=== PATIENT | male | born 1965 | race American Indian/Alaskan Native ===

== ENCOUNTER 2020-08-23 04:04 | Emergency (ER) | payer BC, MEDICARE ==
[2020-08-23 05:10] LABS: Basophils # (Auto) 0.1 K/mm3 (0.0-0.1); Basophils % (Auto) 0.7 % (0.0-1.8); Eosinophils # (Auto) 0.1 K/mm3 (0.0-0.4); Eosinophils % (Auto) 0.6 % (0.0-4.3); Hematocrit 42.3 % (35.5-45.6); Hemoglobin 14.2 gm/dl (11.8-15.2); Lymphocytes # (Auto) 1.8 K/mm3 (1.2-5.4); Lymphocytes % (Auto) 22.6 % (13.4-35.0); Mean Corpuscular HGB Conc 34 % (32-34); Mean Corpuscular Volume 88 fl (84-94); Monocytes # (Auto) 0.6 K/mm3 (0.0-0.8); Monocytes % (Auto) 7.4 % (0.0-7.3); Platelet Count 281 K/mm3 (140-440); Red Blood Count 4.81 M/mm3 (3.65-5.03); Red Cell Distribution Width 14.5 % (13.2-15.2)
--- NOTE | 2020-08-23 05:13 | XRay Report ---
CHEST 2 VIEWS INDICATION / CLINICAL INFORMATION: dizziness. COMPARISON: None available. FINDINGS: SUPPORT DEVICES: None. HEART / MEDIASTINUM: No significant abnormality. LUNGS / PLEURA: No significant pulmonary or pleural abnormality. No pneumothorax. ADDITIONAL FINDINGS: No significant additional findings. IMPRESSION: 1. No acute findings. Signer Name: Dede Grajeda MD Signed: 08/23/2020 5:09 AM Workstation Name: [email or web address]
--- NOTE | 2020-08-23 05:32 | Cat Scan Report ---
CT head/brain wo con INDICATION: Patient complains of dizziness and a headache. TECHNIQUE: Routine CT head without contrast. All CT scans at this location are performed using CT dos e reduction for ALARA by means of automated exposure control. COMPARISON: None. FINDINGS: BRAIN / INTRACRANIAL CONTENTS: No acute hemorrhage, mass effect, midline shift, or hydrocephalus. No appreciable acute large territorial or lacunar infarct. Age-commensurate ventricular and cisternal/wallace lcal prominence. There is what appears to be encephalomalacia in the right posterior parietal lobe. A dditionally, there is a small chronic appearing lacunar infarct in the left basal ganglia/anterior li mb of the internal capsule. There is moderate areas of cerebral white matter low density, nonspecific but suggestive of chronic microvascular ischemic change. ORBITS: No significant abnormality of visualized orbits. SINUSES / MASTOIDS: No significant abnormality of visualized sinuses and mastoid air cells. ADDITIONAL FINDINGS: None. IMPRESSION: 1. No acute intracranial abnormality on noncontrast CT of the brain. 2. There is what appears to be encephalomalacia in the right posterior parietal lobe, small chronic a ppearing lacunar infarct in the left basal ganglia/anterior limb of the internal capsule, and moderat e chronic microvascular ischemic change. However, if there is clinical concern for acute ischemia, MR I brain could be performed for further evaluation. Signer Name: Dede Grajeda MD Signed: 08/23/2020 5:28 AM Workstation Name: [id number]
[2020-08-23 05:50] LABS: Alanine Aminotransferase 10 units/L (7-56); Albumin 4.7 g/dL (3.9-5); BUN/Creatinine Ratio 20; Blood Urea Nitrogen 24 mg/dL (9-20); Calcium 9.4 mg/dL (8.4-10.2); Hemolysis Index 9
[2020-08-23 09:58] VITALS: BP 159/101
--- NOTE | 2020-08-23 11:04 | Emergency Department Report ---
HPI - General Chief Complaint: Dizziness Time Seen by Provider: 08/23/20 10:33 - HPI HPI: This is a 55-year-old -Turk[place] male presents to the emergency department with the complaint of having some dizziness and a syncopal episode earlier this morning while at work. 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 He did not take anything for his symptoms prior to presentation. 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 He has been compliant with his medications. He has a primary care physician for follow-up. He denies any fever, vision change, chest pain, slurred speech, numbness or paresthesias, localized weakness. No recent travel or sick contacts at home. ED Past Medical Hx - Past Medical History Previous Medical History?: Yes Hx Hypertension: Yes Hx CVA: Yes (2019) Hx Diabetes: Yes Hx Seizures: Yes - Surgical History Past Surgical History?: Yes Additional Surgical History: Knee - Social History Smoking Status: Never Smoker Substance Use Type: None ED Review of Systems ROS: Stated complaint: DIZZINESS/RT ARM WEAKNESS Other details as noted in HPI Comment: All other systems reviewed and negative Constitutional: denies: chills, fever Eyes: denies: eye pain, vision change ENT: denies: ear pain, throat pain Respiratory: denies: cough, shortness of breath Cardiovascular: syncope. denies: chest pain, palpitations Gastrointestinal: denies: abdominal pain, vomiting Genitourinary: denies: dysuria, discharge Musculoskeletal: denies: back pain, arthralgia Skin: denies: rash, lesions Neurological: other (dizziness). denies: headache Physical Exam - Physical Exam Vital Signs: Vital Signs 08/23/20 04:31 Temperature 98.4 F Pulse Rate 95 H Respiratory 16 Rate Blood Pressure 159/101 O2 Sat by Pulse 96 Oximetry Physical Exam: GENERAL: The patient is well-developed well-nourished. HENT: Normocephalic. Atraumatic. Patient has moist mucous membranes. EYES: Extraocular motions are intact. Pupils equal reactive to light bilaterally. No nystagmus. NECK: Supple. Trachea is midline. CHEST/LUNGS: Clear to auscultation. There is no respiratory distress noted. HEART/CARDIOVASCULAR: Regular. There is no tachycardia. There is no murmur. ABDOMEN: Abdomen is soft, nontender. Patient has normal bowel sounds. There is no abdominal distention. SKIN: Skin is warm and dry. NEURO: The patient is awake, alert, and oriented. The patient is cooperative. The patient has no focal neurologic deficits. Normal speech. Cranial nerves II through XII grossly intact. No facial asymmetry. No pronator drift or dysmetria. MUSCULOSKELETAL: There is no tenderness or deformity. There is no limitation range of motion. ED Course Vital Signs 08/23/20 04:31 Temperature 98.4 F Pulse Rate 95 H Respiratory 16 Rate Blood Pressure 159/101 O2 Sat by Pulse 96 Oximetry ED Medical Decision Making - Lab Data Result diagrams: 08/23/20 04:57 08/23/20 04:57 Lab Results 08/23/20 08/23/20 08/23/20 Range/Units 04:57 04:57 07:53 WBC 7.9 (4.5-11.0) K/mm3 RBC 4.81 (3.65-5.03) M/mm3 Hgb 14.2 (11.8-15.2) gm/dl Hct 42.3 (35.5-45.6) % MCV 88 (84-94) fl MCH 30 (28-32) pg MCHC 34 (32-34) % RDW 14.5 (13.2-15.2) % Plt Count 281 (140-440) K/mm3 Lymph % (Auto) 22.6 (13.4-35.0) % [place] % (Auto) 7.4 H (0.0-7.3) % Eos % (Auto) 0.6 (0.0-4.3) % Baso % (Auto) 0.7 (0.0-1.8) % Lymph # (Auto) 1.8 (1.2-5.4) K/mm3 [place] # (Auto) 0.6 (0.0-0.8) K/mm3 Eos # (Auto) 0.1 (0.0-0.4) K/mm3 Baso # (Auto) 0.1 (0.0-0.1) K/mm3 Seg Neutrophils % 68.7 (40.0-70.0) % Seg Neutrophils # 5.4 (1.8-7.7) K/mm3 Sodium 139 (137-145) mmol/L Potassium 4.4 (3.6-5.0) mmol/L Chloride 103.0 (98-107) mmol/L Carbon Dioxide 27 (22-30) mmol/L Anion Gap 13 mmol/L BUN 24 H (9-20) mg/dL Creatinine 1.2 (0.8-1.3) mg/dL Estimated GFR > 60 ml/min BUN/Creatinine Ratio 20 % Glucose 146 H (75-100) mg/dL Calcium 9.4 (8.4-10.2) mg/dL Total Bilirubin 0.30 (0.1-1.2) mg/dL AST 11 (5-40) units/L ALT 10 (7-56) units/L Alkaline Phosphatase 42 (35-129) units/L Troponin T < 0.010 < 0.010 (0.00-0.029) ng/mL Total Protein 6.9 (6.3-8.2) g/dL Albumin 4.7 (3.9-5) g/dL Albumin/Globulin Ratio 2.1 % - EKG Data -: EKG Interpreted by Me EKG shows normal: sinus rhythm, axis, intervals, QRS complexes, ST-T waves Rate: normal - EKG Data When compared to previous EKG there are: previous EKG unavailable Interpretation: normal EKG - Radiology Data Radiology results: report reviewed, image reviewed interpreted by me: Chest x-ray does not show any acute process. There are no pleural effusions, obvious pneumonia and there is no pneumothorax. No significant cardiomegaly. CT head/brain wo con INDICATION: Patient complains of dizziness and a headache. TECHNIQUE: Routine CT head without contrast. All CT scans at this location are performed using CT dose reduction for ALARA by means of automated exposure control. COMPARISON: None. FINDINGS: BRAIN / INTRACRANIAL CONTENTS: No acute hemorrhage, mass effect, midline shift, or hydrocephalus. No appreciable acute large territorial or lacunar infarct. Age-commensurate ventricular and ciste rnal/sulcal prominence. There is what appears to be encephalomalacia in the right posterior parietal lobe. Additionally, there is a small chronic appearing lacunar infarct in the left basal ganglia/anterior limb of the internal capsule. There is moderate areas of cerebral white matter low density, nonspecific but suggestive of chronic microvascular ischemic change. ORBITS: No significant abnormality of visualized orbits. SINUSES / MASTOIDS: No significant abnormality of visualized sinuses and mastoid air cells. ADDITIONAL FINDINGS: None. IMPRESSION: 1. No acute intracranial abnormality on noncontrast CT of the brain. 2. There is what appears to be encephalomalacia in the right posterior parietal lobe, small chronic appearing lacunar infarct in the left basal ganglia/anterior limb of the internal capsule, and moderate chronic microvascular ischemic change. However, if there is clinical concern for acute ischemia, MRI brain could be performed for further evaluation. - Medical Decision Making This patient presented with a syncopal episode that was preceded by some nonspecific dizziness/lightheadedness. At the time of my examination the patient is asymptomatic. He does not have any focal, motor or sensory deficits and his cranial nerves are intact. The patient had blood work and imaging done prior to my shift starting, including a CT scan of the head without contrast, chest x-ray. CT of the head did not show any hemorrhage or large vessel occlusion, or any other acute process. Chest x-ray did not show any pneumonia, pleural effusions, pneumothorax, or any acute process. Labs have been unremarkable including CBC, metabolic panel, and negative troponins x2. Vital signs have been reassuring throughout his ED course. The patient has been seen ambulatory in the emergency department and both appears and feels stable. For all these reasons the patient appears safe for discharge home at this time. He has been instructed to follow-up with his primary care physician, but to return to the closest emergency department with any further episodes of passing out, worsening of his symptoms, or with any acute distress. Critical Care Time: No Critical care attestation.: If time is entered above; I have spent that time in minutes in the direct care of this critically ill patient, excluding procedure time. ED Disposition Clinical Impression: Dizziness Syncope Qualifiers: Syncope type: unspecified Qualified Code(s): R55 - Syncope and collapse Hypertension Qualifiers: Hypertension type: essential hypertension Qualified Code(s): I10 - Essential (primary) hypertension Disposition: - TO HOME OR SELFCARE Is pt being admited?: No Condition: Stable Instructions: Syncope, Hypertension, Adult, Syncope (ED), Hypertension (ED) Additional Instructions: Please follow-up with your primary care physician in the next few days. Take all medications as prescribed. Try to stay away from foods that are high in salt and caffeinated products. Keep a blood pressure log. Return to the emergency department with any worsening of your symptoms, new or concerning symptoms not addressed during this current emergency department visit, or with any acute distress. Referrals: RITESH RODRIGUEZ MD [Primary Care Provider] - 2-3 Days Forms: Work/School Release Form(ED) Time of Disposition: 11:04 - Assessment Assessment Interval: Baseline - Level of Consciousness 1a. Level of Consciousness: alert/keenly responsive - LOC Questions 1b. LOC Questions: answers both correctly - LOC Command 1c. LOC Commands: performs tasks correctly - Best Gaze 2. Best Gaze: normal - Visual 3. Visual: no visual loss - Facial Palsy 4. Facial Palsy: normal symmetrical movement - Motor Arm 5a. Motor Arm Left: no drift 5b. Motor Arm Right: no drift - Motor Leg 6a. Motor Leg Left: no drift 6b. Motor Leg Right: no drift - Limb Ataxia 7. Limb Ataxia: absent - Sensory 8. Sensory: normal - Best Language 9. Best Language: no aphasia - Dysarthria 10. Dysarthria: normal - Extinction and Inattention 11. Extinction/Inattention: no abnormality - Scoring Total Score: 0 Stroke Severity: No Stroke Symptoms
--- NOTE | 2020-08-23 18:45 | Electrocardiograph Report ---
[facility] Test Date: 2020-08-23 Test Time: 05:42:20 Pat Name: RADU CONWAY Department: Room: Gender: M Dark Room Attendant: SAMUEL : 1965 Requested By: ED DOC Order Number: [id number] Reading MD: Clark Mcgovern Measurements Intervals [place] Rate: 91 P: 81 TN: 174 QRS: -6 QRSD: 90 T: 78 QT: 366 QTc: 451 Interpretive Statements Sinus rhythm No previous ECG available for comparison Electronically Signed On 08-23-2020 18:45:21 EDT by Clark Mcgovern
== END 2020-08-23 11:39 | disposition home or self-care (01) ==
LOC: ED 04:04
DX: I10 Essential (primary) hypertension (principal); E11.9 Type 2 diabetes mellitus without complications; G40.909 Epilepsy, unspecified, not intractable, without status epilepticus; Z86.73 Personal history of transient ischemic attack (TIA), and cerebral infarction without residual deficits; Z79.899 Other long term (current) drug therapy
CPT/HCPCS: 36415; 70450; 71046; 80053; 84484; 85025; 93005